=== PATIENT | female | born 1960 | race Caucasian/White ===

== ENCOUNTER 2017-04-15 10:19 | Outpatient (CLI) | payer OTHER ==
--- NOTE | 2017-04-16 13:55 | Mammography Report ---
DIGITAL SCREENING MAMMOGRAM: 04/15/2017 CLINICAL INDICATION: A 57-year-old, for baseline. TECHNIQUE: Routine CC and MLO projections were obtained of the breasts. Bilateral laterally exaggera regan craniocaudal views. FINDINGS: The breasts demonstrate heterogeneously dense fibroglandular parenchyma bilaterally. Coars e, typically benign calcifications are present. No suspicious masses, clustered microcalcifications, or regions of architectural distortion are identified. IMPRESSION: BENIGN FINDINGS. RECOMMENDATION: ROUTINE ANNUAL SCREENING UNLESS OTHERWISE CLINICALLY INDICATED. BIRADS CATEGORY 2-BENIGN FINDINGS. STANDARD QUALIFYING STATEMENTS 1. This examination was reviewed with the aid of Computer-Aided Detection (CAD). 2. A negative or benign imaging report should not delay biopsy if clinically suspicious findings are present. Consider surgical consultation if warranted. More than 5% of cancers are not identified by i maging. 3. Dense breasts may obscure an underlying neoplasm. JOB #: [id number] EXT JOB #:[id number]
== END 2017-04-15 10:20 | disposition home or self-care (01) ==
LOC: DI.S 10:19
PROVIDERS: ATTEND Registered Nurse
DX: Z12.31 Encounter for screening mammogram for malignant neoplasm of breast (principal)
CPT/HCPCS: 77067

== ENCOUNTER 2022-08-05 06:15 | Day surgery (SDC) | payer OTHER ==
[2022-08-05] MEDS ORDERED: LACTATED RINGERS 1,000 ML IV ONE ×2 (06:50→08:15)
[2022-08-05] MEDS ORDERED: PROPOFOL 500 MG/50 ML 500 MG/50 ML VIAL ONE (07:05)
[2022-08-05] MEDS ORDERED: LIDOCAINE-MPF 2% 5 ML VIAL ONE (07:31)
--- NOTE | 2022-08-05 07:34 | ANESTHESIA ---
Pre-Anesthesia VS, & Labs - Diagnosis screening - Procedure colonoscopy Vital Signs: Temp Pulse Resp BP Pulse Ox O2 Flow Rate 36.2 C L 70 14 108/70 98 0 08/05/22 06:40 08/05/22 06:40 08/05/22 06:40 08/05/22 06:40 08/05/22 06:40 08/05/22 06:40 Height: 5 ft 1 in Weight (kg): 53.6 kg Body Mass Index: 22.3 BMI Classification: Normal - NPO >8 hours - Is Patient ?: No Home Medications and Allergies Allergies/Adverse Reactions: Allergies Allergy/AdvReac Type Severity Reaction Status Date / Time No Known Drug Allergies Allergy Verified 08/05/22 06:50 Anes History & Medical History - Anesthetic History Anesthesia Complications: reports: No previous complications - Medical History Neuro: reports: None Smoking Status: Never smoker Exam General: Alert Dental: WNL Mouth Opening: Greater than 4 Fingerbreadths Neck Mobility: Normal Mallampati classification: II Thyromental Distance: greater than 6 cm Respiratory: Lungs clear Cardiovascular: Regular rate Plan Anesthesia Type: Total IV Consent for Procedure(s) Verified and Reviewed: Yes Code Status: Attempt Resuscitation ASA classification: 1-Healthy patient Is this case an emergency?: No
[2022-08-05] MEDS ORDERED: PROPOFOL 200 MG/20 ML VIAL IVP ONE (08:09)
[2022-08-05 08:50] VITALS: BP 103/61
--- NOTE | 2022-08-05 09:16 | ANESTHESIA POST OP EVALUATION ---
Anesthesia Post Eval - Post Anesthesia Eval Vitals: Last Vital Signs Temp 36.4 C L 08/05/22 08:49 Pulse 82 08/05/22 08:49 Resp 16 08/05/22 08:49 BP 103/61 08/05/22 08:49 Pulse Ox 99 08/05/22 08:49 O2 Flow Rate 0 08/05/22 06:40 CV Function Including HR & BP: Stable Pain Control: Satisfactory Nausea & Vomiting: Negative Mental Status: Baseline Respiratory Status: Airway Patent Hydration Status: Satisfactory Anesthesia Complications: None
== END 2022-08-05 06:16 | disposition home or self-care (01) ==
LOC: SDS 06:15
PROVIDERS: ATTEND Surgery
DX: Z12.11 Encounter for screening for malignant neoplasm of colon (principal); K64.8 Other hemorrhoids
CPT/HCPCS: 45378; J7120